=== PATIENT | male | born 1995 | race African-American/Black ===

== ENCOUNTER 2020-07-23 21:22 | Emergency (ER) | payer OTHER ==
[~2020-07-23] VITALS: Ht 170.2 cm; Wt 113.7 kg
--- NOTE | 2020-07-23 22:22 | REPVR ---
PROCEDURE INFORMATION: Exam: XR Left Hand Exam date and time: 07/23/2020 10:01 PM Age: 24 years old Clinical indication: Injury or trauma; Hand in garbage disposal; Laceration; Hand and finger; Left; Middle finger and ring finger and little finger; Injury date: Today TECHNIQUE: Imaging protocol: XR Left hand. Views: 3 or more views. COMPARISON: No relevant prior studies available. FINDINGS: Bones/joints: There is no fracture or dislocation. The joint spaces are preserved. No arthropathy is noted. Soft tissues: Unremarkable. No radiopaque foreign body is noted. IMPRESSION: No fracture, dislocation, or radiopaque foreign body in the left hand. Electronically signed by: Lazaro Muñoz On 07/23/2020 22:22:17 PM
[2020-07-24] MEDS ORDERED: LIDOCAINE 1% MDV 20ML VIAL SC ONE (01:25)
[2020-07-24] MEDS ORDERED: NEOSPORIN OINT 0.9 GM PKT TOP ONE (01:30)
[2020-07-24 02:20] VITALS: BP 137/62
== END 2020-07-24 02:25 | disposition home or self-care (01) ==
LOC: M ED 21:22
DX: S61.217A Laceration without foreign body of left little finger without damage to nail, initial encounter (principal); W25.XXXA Contact with sharp glass, initial encounter; Y92.018 Other place in single-family (private) house as the place of occurrence of the external cause; Z88.0 Allergy status to penicillin